=== PATIENT | male | born 1975 | race Caucasian/White ===

== ENCOUNTER 2018-12-31 16:03 | Emergency (ER) | payer OTHER ==
[~2018-12-31] VITALS: Ht 172.7 cm; Wt 71.7 kg
--- OUTSIDE RECORDS SUMMARY | 2018-12-31 16:08 | XMS REPORT | Continuity of Care Document ---
Author Author [facility] Organization [facility] Address Unknown Phone Unavailable Allergies There is no data. Medications There is no data. Problems Date Dx Coded Attending Type Code Diagnosis Diagnosed By 05/02/2013 HEMA GALEAS DO 719.46 PAIN IN JOINT INVOLVING LOWER LEG 05/02/2013 HEMA GALEAS DO V70.0 ROUTINE GENERAL MEDICAL EXAMINATION AT A HEALTH CARE FACILITY Procedures There is no data. Results There is no data. Encounters ACCT No. Visit Date/Time Discharge Status Pt. Type Provider Facility Loc./Unit Complaint [id number] 05/07/2013 13:54:00 05/07/2013 23:59:59 [facility] Outpatient [id number] 05/02/2013 09:24:00 05/02/2013 23:59:59 [facility] Out[facility] HEMA GALEAS DO
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
[2018-12-31 16:39] VITALS: BP 122/85
== END 2018-12-31 16:39 ==
LOC: EDUNIT# 16:03 → ER FS 16:05
DX: S21.231A Puncture wound without foreign body of right back wall of thorax without penetration into thoracic cavity, initial encounter (principal); Y04.0XXA Assault by unarmed brawl or fight, initial encounter
CPT/HCPCS: 99283